=== PATIENT | male | born 1970 | race Caucasian/White ===

== ENCOUNTER 2017-04-15 13:52 | Outpatient (CLI) ==
[2016-01-21 18:54] VITALS: BMI 28.5
== END 2017-04-15 13:53 | disposition home or self-care (01) ==
LOC: CAR 13:52
PROVIDERS: ATTEND Family Medicine
DX: R03.0 Elevated blood-pressure reading, without diagnosis of hypertension (principal)
CPT/HCPCS: 93005; 93010